=== PATIENT | female | born 1955 | race Caucasian/White ===

== ENCOUNTER 2016-09-12 19:59 | Emergency (ER) | payer OTHER ==
--- NOTE | ~2016-09-12 | EKG ---
PATIENT: TRINI REYES UNIT #: [id number] Ventricular Rate: 64 BPM Atrial Rate: 64 BPM P-R Interval: 152 ms QRS Duration: 90 ms Q-T Interval: 436 ms QTC Calculation(Bezet): 449 ms P Proctor: 76 degrees Calculated R Proctor: 52 degrees Calculated T Proctor: 70 degrees Diagnosis Line: Normal sinus rhythm with sinus arrhythmia Diagnosis Line: Normal ECG Diagnosis Line: No previous ECGs available Diagnosis Line: Confirmed by IMANI ROBERT MD ([id number]) on 09/15/2016 Diagnosis Line: 9:37:51 AM INTERPRETING MD: JAKOB MILIAN
--- NOTE | ~2016-09-12 | CT71 ---
[facility] A Service of [facility] RADIOLOGY TEXT RESULTS PATIENT: TRINI REYES LOCATION: SED : 59 UNIT #: [id number] AGE: [address]: Danny Cheung MD SEX: F ORDER DR: [id number] [place] [id number] E MR#: [id number] Acc #: [id number] NAME: TRNII REYES. : 1955 SEX: F STUDY DATE/TIME: 09/12/2016 21:16 UNIT: SED ROOM: STUDY DESCRIPTION: CT Head Wo Contrast Attending Physician: Danny Cheung M.D. Ordering Physician: Danny Cheung M.D. Primary Care Physician: [facility] MEDICAL IMAGING REPORT This report is preliminary unless electronic signature is present. EXAM CT head without contrast INDICATION Dizziness this morning. PROCEDURE Unenhanced CT head COMPARISON None TECHNIQUE This CT exam was performed with one or more of the following radiation dose reduction techniques: automatic exposure control, adjustment of mA and/or kV according to patient size, and iterative reconstruction. FINDINGS No acute hemorrhage, abnormal mass effect, extraaxial collection or hydrocephalus. No evidence for acute or early subacute large territory infarct. No calvarial fracture. Paranasal sinuses clear. IMPRESSION No acute intracranial finding. Dictated by... Santiago Albert M.D. THIS IS AN ELECTRONICALLY VERIFIED REPORT Santiago Albert M.D. at 09/16/2016 7:05 AM [facility] A Service of [facility] RADIOLOGY TEXT RESULTS PATIENT: TRINI REYES LOCATION: SED : 59 UNIT #: [id number] AGE: [address]: Danny Cheung MD SEX: F ORDER DR: TD: 09/13/2016 08:45 JOB #: [id number] MEDICAL IMAGING REPORT Page 1 of 1
--- NOTE | ~2016-09-12 | CT17 ---
[facility] A Service of [facility] & [facility] RADIOLOGY TEXT RESULTS PATIENT: TRINI REYES LOCATION: SED : 59 UNIT #: [id number] AGE: [address]: Danny Cheung MD SEX: F ORDER DR: [id number] [place] [id number] E MR#: [id number] Acc #: [id number] NAME: TRINI REYES. : 1955 SEX: F STUDY DATE/TIME: 09/12/2016 21:21 UNIT: SED ROOM: STUDY DESCRIPTION: CT Angio Head Attending Physician: Danny Cheung M.D. Ordering Physician: Danny Cheung M.D. Primary Care Physician: [facility], MEDICAL IMAGING REPORT This report is preliminary unless electronic signature is present. EXAM CT angio head and neck. HISTORY Dizzy spell this morning, 09/12/2016, since resolved, then another dizzy spell in the afternoon, patient fell right side of head. History of bladder cancer and thyroid cancer. History of hypertension and smoking. COMMENT CT angiography of the head and neck vessels performed during the intravenous administration of 100 mL of Isovue-370 with imaging acquired in the axial plane followed by multiple reconstructed and reformatted images for the purpose of 3-D CT angiography of the head and neck vessels. This CT exam was performed with one or more of the following radiation dose reduction techniques: automatic exposure control, adjustment of mA and/or kV according to patient size, and iterative reconstruction. Head CT comparison is from earlier the same day. The overnight wet reading provided by Dr. Mario Boss, [id number], 09/12/2016. CT ANGIOGRAM NECK: There is atherosclerotic vascular calcification at the arch, as well as some noncalcified plaque. I suspect there is mild stenosis at the origin of the left common and left subclavian artery. Mild disease origin of the right subclavian artery. Assessment of the right carotid system shows mild noncalcified plaque at the bifurcation. By NASCET criteria, 0% diameter stenosis suspected. The right carotid siphon is widely patent with only mild disease. Assessment of the left carotid system shows mild noncalcified plaque at the left carotid bifurcation but by NASCET criteria essentially 0% diameter stenosis. Only mild disease of the left carotid siphon which is STS. [facility] A Service of [facility] & [facility] RADIOLOGY TEXT RESULTS PATIENT: TRINI REYES LOCATION: [facility] : 59 UNIT #: [id number] AGE: [address]: Danny Cheung MD SEX: F ORDER DR: widely patent. The right vertebral artery is hypoplastic and I am concerned for high-grade stenosis at the origin over a short segment. The vessel is also somewhat irregular. Some irregularity of the distal right intracranial vertebral artery noted, as well. On the left side, there is dominant vertebral artery which is patent throughout and no hemodynamically significant stenosis is suspected. Evaluation of the intracranial circulation shows anterior dominant circulation. No intracranial vascular cutoff. There are large bilateral posterior communicators with infundibuli at the origins. There is a small anterior communicator present. The P1 vessels are hypoplastic bilaterally. There is fullness at the tip of the basilar from which the posterior circulation vessels arise measuring at most 3 x 4 mm dimension. The dural venous sinuses are patent. No intracranial aneurysm is suspected allowing for the technical limitation of CT angiography in general for evaluation of intracranial aneurysm. Windowing of the twist and tumble reformatted intracranial images is poor and I have requested repeat images to be obtained so that I can review. This report will be addended if needed. There is heterogeneous appearance of the thyroid gland with lesions in it, including a 1.1 cm in dimension lesion in the right lobe. Recommend correlation with a followup thyroid ultrasound. Currently, the finding is nonspecific. There is some streak artifact from dental metal. No intracranial central stenosis is suspected other than the irregular narrowing of the distal right intracranial vertebral artery. I suspect that there is disease of this vessel over a long segment. IMPRESSION 1. By NASCET criteria, 0% stenosis is suspected at either carotid bifurcation, though there is some mild noncalcified plaque present. 2. Both vertebral arteries are patent. The left is dominant. I believe there is high-grade short segment stenosis at the origin of the right vertebral artery. Also, irregular narrowing over a long segment of the intracranial right vertebral artery noted. Efforts are currently underway to determine the disposition of this overnight emergency room patient. 3. No intracranial vascular cutoff is seen. The patient has an anterior dominant circulation. There is fullness at the tip of the basilar measuring up to 3 x 4 mm. From this fullness, the bilateral, somewhat hypoplastic P1 vessel and superior cerebellar arteries arise. 4. Lesions in the thyroid gland, largest on the right side up to 1.1 cm in dimension, not consistent with a simple cyst and this should be further characterized with a followup thyroid ultrasound. STAT * RESULT [facility] A Service of [facility] RADIOLOGY TEXT RESULTS PATIENT: TRINI REYES LOCATION: [facility] : 59 UNIT #: [id number] AGE: [address]: Danny Cheung MD SEX: F ORDER DR: Add: I spoke to Dr. 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 Dictated by... Dang Roca M.D. THIS IS AN ELECTRONICALLY VERIFIED REPORT Dang Roca M.D. at 09/13/2016 9:52 AM BRII/naveen TD: 09/13/2016 09:31 JOB #: [id number] MEDICAL IMAGING REPORT Page 1 of 1
--- NOTE | ~2016-09-12 | CT23 ---
[facility] A Service of [facility] & [facility] RADIOLOGY TEXT RESULTS PATIENT: TRINI REYES LOCATION: SED : 59 UNIT #: [id number] AGE: [address]: Danny Cheung MD SEX: F ORDER DR: [id number] [facility] [address] [place], [place] [address] [id number] E MR#: [id number] Acc #: [id number] NAME: TRINI REYES. : 1955 SEX: F STUDY DATE/TIME: 09/12/2016 21:21 UNIT: SED ROOM: STUDY DESCRIPTION: CT Angio Neck Attending Physician: Danny Cheung M.D. Ordering Physician: Danny Cheung M.D. Primary Care Physician: [facility], MEDICAL IMAGING REPORT This report is preliminary unless electronic signature is present EXAM CT angio neck. HISTORY Dizzy spell this morning, 09/12/2016, since resolved, then another dizzy spell in the afternoon, patient fell right side of head. History of bladder cancer and thyroid cancer. History of hypertension and smoking. FINDINGS Please see for CT ANGIO head for results. Dictated by... Dang Roca M.D. THIS IS AN ELECTRONICALLY VERIFIED REPORT Dang Roca M.D. at 09/13/2016 9:53 AM BRII/naveen TD: 09/13/2016 09:34 JOB #: [id number] MEDICAL IMAGING REPORT Page 1 of 1 COPY
[~2016-09-12 19:59] MED LIST: ASPIRIN PO; ATENOLOL; BLOOD PRESSURE; ESTRACE PO; HCTZ PO; HORMONES; KROGER PHARMACY; LISINOPRIL PO; OXYTROL FOR WO1 EACH; PROVERA PO; SYNTHROID PO
[2016-09-12 20:16] LABS: URINE SOURCE CLEAN CATCH
[2016-09-12 20:20] LABS: URINE BILIRUBIN NEG (NEG); URINE BLOOD 1+ (NEG); URINE COLOR YELLOW; URINE GLUCOSE NEG (NORM); URINE KETONE NEG (NEG); URINE LEUKOCYTE ESTERASE 2+ (NEG); URINE NITRATE NEG (NEG); URINE PROTEIN NEG (NEG); URINE UROBILINOGEN 0.2 MG/DL (NORM)
[2016-09-12 20:21] LABS: BASOPHIL# 0.1 X10e3 (0-0.3); BASOPHIL% 0.9 % (0-2.5); DIFF IND NO; EOSINOPHIL# 0.3 X10e3 (0-0.7); EOSINOPHIL% 2.7 % (0.0-7.0); HEMATOCRIT 45.6 % (35.0-45.0); HEMOGLOBIN 15.5 gm/dL (12.0-16.0); LYMPHOCYTE# 3.9 X10e3 (1.0-3.5); LYMPHOCYTE% 36.8 % (17.0-45.0); MEAN CELL VOLUME 87.9 FL (83-96); MEAN CORPUSCULAR HEMOGLOBIN 29.9 PG (28-34); MEAN CORPUSCULAR HGB CONC 34.1 g/dL (30-36); MEAN PLATELET VOLUME 6.8 FL (6.5-11.5); MONOCYTE# 0.7 X10e3 (0-1.0); MONOCYTE% 6.4 % (3.0-12.0); NEUTROPHIL# 5.7 X10e3 (1.5-7.1); NEUTROPHIL% 53.2 % (40-75); PLATELET COUNT 259 X10e3 (140-420); RED BLOOD COUNT 5.19 X10e (3.90-5.30); RED CELL DISTRIBUTION WIDTH 14.5 % (11.0-15.5); WHITE BLOOD COUNT 10.7 X10e3 (4.0-10.5)
[2016-09-12 20:23] LABS: MICRO INDICATED? YES; URINE APPEARANCE SL HAZY
[2016-09-12 20:26] LABS: CULTURE INDICATED? YES; URINE BACTERIA 1+ (NEG); URINE WBC 100-200 /[HPF] (0-5)
[2016-09-12 20:27] LABS: URINE SQUAMOUS EPITHELIAL CELL OCCAS /[HPF]
[2016-09-12 20:29] LABS: PROTHROMBIN TIME (PATIENT) 11.7 SECONDS (9.5-12.4)
[2016-09-12 20:30] LABS: AMPHETAMINE NEG (NEG); BARBITURATES NEG (NEG); BENZODIAZEPINES NEG (NEG); COCAINE NEG (NEG); MARIJUANA NEG (NEG); OPIATES NEG (NEG); TRICYCLIC ANTIDEPRESSANTS NEG (NEG); U METHADONE NEG (NEG)
[2016-09-12 20:36] LABS: PARTIAL THROMBOPLASTIN TIME 29.5 SECONDS (25.6-38.1)
[2016-09-12 20:42] LABS: ALBUMIN SERUM 4.1 g/dL (3.5-5.0); ALKALINE PHOSPHATASE 87 U/L (32-92); ALT (SGPT) 15 U/L (10-40); AST (SGOT) 19 U/L (10-42); BILIRUBIN, DIRECT <0.1 mg/dL (0.0-0.2); BILIRUBIN,INDIRECT 0.1 mg/dL (0.0-0.9); BILIRUBIN,TOTAL 0.2 mg/dL (0.2-2.0); BLOOD UREA NITROGEN 19 mg/dL (9-23); CALCIUM SERUM 9.1 mg/dL (8.4-10.2); CARBON DIOXIDE 25 mmol/L (22-31); CHLORIDE 103 mmol/L (100-111); GLOM FILT RATE Estimated 61.6 mL/min (>60); GLUCOSE FASTING 103 mg/dL (70-110); PROTEIN TOTAL SERUM 7.7 g/dL (6.0-8.3); SODIUM 136 mmol/L (135-145)
== END 2016-09-12 23:02 | disposition home or self-care (01) ==
LOC: SED 19:59
PROVIDERS: Emergency Medicine
DX: N39.0 Urinary tract infection, site not specified (principal); I10 Essential (primary) hypertension; Z79.899 Other long term (current) drug therapy
CPT/HCPCS: 36415; 70450; 70496; 70498; 80048; 80076; 80307; 81003; 85025; 85610; 85730; 87086; 87088; 87186; 93005; 96360; 99284